=== PATIENT | male | born 1980 | race Caucasian/White ===

== ENCOUNTER 2018-06-25 15:29 | Emergency (ER) | payer MEDICAID ==
[~2018-06-25] VITALS: Ht 172.7 cm; Wt 93.0 kg
[2018-06-25] MEDS ORDERED: METHYLPREDNISOLONE SOD SUCC 125 MG/2 ML VIAL IM STA (19:31)
[2018-06-25] MEDS ORDERED: KETOROLAC 60MG/2ML VIAL IM STA (19:31)
[2018-06-25] MEDS ORDERED: PENICILLIN G BENZATHINE 1,200,000 UNITS/2ML SYR IM ONE (19:45)
[2018-06-25 20:25] VITALS: BP 115/77
== END 2018-06-25 20:30 | disposition home or self-care (01) ==
LOC: ER 15:29
DX: J02.9 Acute pharyngitis, unspecified (principal); L04.0 Acute lymphadenitis of face, head and neck
CPT/HCPCS: 87070; 87430; 96372; 99284; J0561; J1885; J2930

== ENCOUNTER 2021-05-06 12:26 | Emergency (ER) | payer MEDICAID ==
[~2021-05-06] VITALS: Ht 167.6 cm; Wt 75.0 kg
[2021-05-06] MEDS ORDERED: FAMOTIDINE 20MG TABLET PO ONE (13:00)
[2021-05-06] MEDS ORDERED: ONDANSETRON 4MG ODT PO ONE (13:00)
[2021-05-06] MEDS ORDERED: TRAMADOL 50MG TABLET PO ONE (13:00)
[2021-05-06 13:02] VITALS: BP 147/88
[2021-05-06] MEDS ORDERED: ONDA4TAB11 PO (14:22)
[2021-05-06] MEDS ORDERED: FAMO20TA8 MT (14:22)
[2021-05-06] MEDS ORDERED: HYDROCODONE/APAP 7.5/325MG 1 TAB TABLET PO ONE (15:00)
== END 2021-05-06 16:48 | disposition left against medical advice (07) ==
LOC: ER 12:26
DX: K29.20 Alcoholic gastritis without bleeding (principal); F10.10 Alcohol abuse, uncomplicated; Y90.9 Presence of alcohol in blood, level not specified
CPT/HCPCS: 36415; 83690; 99284; Q0162; Z7610